=== PATIENT | male | born 1995 | race Caucasian/White ===

== ENCOUNTER 2022-09-28 05:09 | Emergency (ER) | payer MEDICAID ==
--- NOTE | 2022-09-28 05:31 | NUR ---
PT BIBRA AND LEFT WITHOUT BEING SEEN BY MD [employer]CEMENT AGENT. PARAMEDICS DID NOT GIVE RN REPORT FOR TRIAGE.
== END 2022-09-28 05:33 | disposition left against medical advice (07) ==
LOC: ER 05:15
DX: Z53.21 Procedure and treatment not carried out due to patient leaving prior to being seen by health care provider (principal)

== ENCOUNTER 2022-12-14 21:24 | Emergency (ER) | payer MEDICAID ==
[~2022-12-14] VITALS: Ht 167.6 cm; Wt 81.6 kg
--- NOTE | 2022-12-14 21:40 | NUR ---
"I want a psych eval, denies SI/HI", "sometimes I hurt myself" PT A/OX4. TOLERATING R/A WELL WITH NO RESP DISTRESS.
[2022-12-14] MEDS ORDERED: LORAZEPAM 1 MG TABLET PO ONE (22:00)
[2022-12-14] MEDS ORDERED: LORAZEPAM 1 MG TABLET ONE (22:00)
[2022-12-14 22:55] VITALS: BP 115/86
--- NOTE | 2022-12-14 22:55 | NUR ---
Patient discharged to home in stable condition. Written and verbal after care instructions given. Patient verbalizes understanding of instruction.
== END 2022-12-14 22:56 | disposition home or self-care (01) ==
LOC: ER 21:41
DX: F41.9 Anxiety disorder, unspecified (principal); F31.9 Bipolar disorder, unspecified